=== PATIENT | female | born 1980 | race Caucasian/White ===

== ENCOUNTER → 2017-03-26 | Outpatient (CLI) | payer OTHER ==
[~2017-03-26] MED LIST: ACET-1256 PO; CLR10 PO; DOXY50CA PO; IBUP-103 PO; METF500T PO; MULT1CHW4 PO; SPIR50TA3 PO
[2017-03-26 09:58] LABS: CHOLESTEROL/HDL RATIO 2.5
== END | disposition home or self-care (01) ==
LOC: C.LAB1850 08:20
PROVIDERS: ATTEND Internal Medicine Endocrinology, Diabetes & Metabolism
DX: E55.9 Vitamin D deficiency, unspecified (principal); E28.2 Polycystic ovarian syndrome

== ENCOUNTER 2017-07-18 04:33 | Emergency (ER) | payer OTHER ==
[~2017-07-18] VITALS: Ht 162.6 cm; Wt 95.1 kg
[2017-07-18 04:38] VITALS: TEMP 36.9; Ht 162.6 cm; Wt 95.1 kg
[2017-07-18] MEDS ORDERED: SODIUM CHLORIDE 0.9% 1000ML 1,000 ML IV STA (04:57)
[2017-07-18] MEDS ORDERED: DICYCLOMINE HCL 10 MG/ML 2 ML AMP IM ONE (05:00)
[2017-07-18] MEDS ORDERED: OPTIRAY 320 IV PRN (05:15)
[2017-07-18 05:32] LABS: BASO % 0.2 %; BASO ABS # 0.02 K/uL (0-0.2); EOS % 0.2 %; EOS ABS # 0.03 K/uL (0-0.5); HEMATOCRIT 42.1 % (37-47); HEMOGLOBIN 14.2 g/dL (12.0-16.0); IG# 0.03 K/uL (0.00-0.02); LYMPH % 12.2 %; LYMPH ABS # 1.51 K/uL (1.2-3.4); MEAN CORPUSCULAR HEMOGLOBIN 29.3 pg (25-34); MEAN CORPUSCULAR HGB CONC 33.7 g/dl (32-36); MEAN PLATELET VOLUME 9.9 fL (7.4-10.4); MONO % 4.6 %; MONO ABS # 0.57 K/uL (0.11-0.59); NEUT % 82.6 %; NEUT ABS # 10.21 K/uL (1.4-6.5); PLATELET COUNT 312 K/uL (130-400); RED CELL DISTRIBUTION WIDTH CV 13.7 % (11.5-14.5); RED CELL DISTRIBUTION WIDTH SD 43.2 fL (36.4-46.3); WHITE BLOOD COUNT 12.37 K/uL (4.8-10.8)
[2017-07-18 05:35] VITALS: O2SAT 99
[2017-07-18 05:49] LABS: ALBUMIN 3.8 gm/dl (3.4-5.0); CALCIUM 8.9 mg/dl (8.5-10.1); CREATININE 0.86 mg/dl (0.60-1.20); POTASSIUM 3.8 mmol/L (3.5-5.1)
[2017-07-18] MEDS ORDERED: BUPR75TA8 PO (06:05)
[2017-07-18] MEDS ORDERED: PHEN37.585 PO (06:05)
[2017-07-18] MEDS ORDERED: BCPILLS PO (06:05)
--- NOTE | 2017-07-18 06:31 | DIAGNOSTIC IMAGING REPORT ---
ABD/PELVIS IV CONTRAST ONLY CLINICAL HISTORY: 37 years-old Female presenting with lower abd pain, bloody D. TECHNIQUE: Multidetector CT of the abdomen and pelvis was performed after the administration of intravenous contrast. IV contrast: 94 mL of Optiray 320. A dose lowering technique was used consistent with the principles of ALARA (as low as reasonably achievable). COMPARISON: None. CT DOSE (mGy.cm): The estimated cumulative dose is 729.69 mGy.cm. FINDINGS: Hand Tool Filer topogram: Unremarkable. Lung bases: Minimal basilar opacities, likely atelectasis. Normal heart size. No pericardial or pleural effusion. Liver: Normal morphology. No liver lesion. Patent hepatic vasculature. Biliary: No intrahepatic or extrahepatic biliary ductal dilatation. Normal gallbladder. Pancreas: Normal. Spleen: Normal. Adrenal glands: Normal. Kidneys and ureters: Normal. No hydronephrosis. Bladder: Normal. Pelvic organs: Uterus and ovaries normal. Bowel: Wall thickening with some mucosal edema and mild pericolonic inflammatory change along the descending colon. No adjacent fluid collection or evidence of perforation. The appendix is normal. No bowel obstruction. Peritoneal cavity: No free fluid or intraperitoneal gas. Lymph nodes: No enlarged lymph nodes in the abdomen or pelvis. Vasculature: Aorta and IVC patent and normal in caliber. Abdominal wall: Small fat-containing umbilical hernia. Musculoskeletal: Normal. Bone island noted in the L3 vertebral body. IMPRESSION: 1. Findings consistent with colitis of the descending colon, most likely infectious. No associated abscess or perforation. Electronically signed by: Iker Trevizo M.D. 07/18/2017 6:30 AM Dictated Date/Time: 07/18/2017 6:13 AM
--- NOTE | 2017-07-18 06:38 | EMERGENCY ROOM VISIT NOTE ---
History First contact with patient: 04:45 Chief Complaint: ABDOMINAL PAIN Stated Complaint: STOMACH CRAMPING W/WATERY BLOODY DIARRHEA History of Present Illness The patient is a 37 year old female who presents to the Emergency Room with complaints of lower abdominal cramping with diarrhea and a little bit of blood in it for the past day. Patient had a colonoscopy a year and a half ago that showed benign polyps per patient. She describes the pain as cramping, ranging in severity comes and goes currently 3 out of 10. To the left lower quadrant. It does not radiate. Nothing makes it better or worse. Patient states she started off with abdominal cramping and then had a bowel movement and then had a few episodes of diarrhea and since then she has had 3 more episodes with a little bit of blood that comes out. No clots or toilet bowl full of blood. No black stool. No history of GI bleeding in the past. Patient has been taking a diet suppressant tablet. Patient denies chest pain, dyspnea, fever, chills, nausea, vomiting, back pain, urinary symptoms. Patient brought in pictures to show me. I did review this. There is minimal amount of blood in the toilet. No recent antibiotics. Patient is on well water. Review of Systems An 10 system review of systems was completed with positives and pertinent negatives listed in the HPI. Past Medical/Surgical History Medical Problems: (1) ABNORMAL GLANDULAR PAPANICOLAOU SMEAR OF CERVIX (2) ESOPHAGEAL REFLUX (3) FAM HX-DIABETES MELLITUS Social History Smoking Status: Never Smoker Alcohol Use: none Marital Status: Housing Status: lives with family Occupation Status: employed Current/Historical Medications Scheduled Control Pills ( Control Pills), 1 TAB PO DAILY Bupropion Hcl (Wellbutrin), 150 MG PO BID Loratadine (Claritin), 10 MG PO DAILY Multiple Vitamins W/ Minerals (Adult Gummy), 1 TAB PO DAILY Phentermine Hcl (Adipex P), 37.5 MG PO DAILY Spironolactone (Aldactone), 50 MG PO BID Physical Exam Vital Signs Date Time Temp Pulse Resp B/P (MAP) Pulse Ox O2 Delivery O2 Flow Rate FiO2 07/18/17 06:14 136/99 07/18/17 05:39 78 20 98 07/18/17 05:38 80 07/18/17 05:35 99 Room Air 07/18/17 05:34 144/95 2/10/18 04:38 36.9 114 24 165/104 99 Room Air Physical Exam VITALS: Vitals are noted on the nurse's note and reviewed by myself. Vital signs hypertensive GENERAL: Pleasant female anxious appearing, in no acute distress, nondiaphoretic , well-developed well-nourished. SKIN: The skin was without rashes, erythema, edema, or bruising. There is no tenting of the skin. Capillary reflex less than 2 seconds. HEAD: Normocephalic atraumatic. EARS: External auditory canals clear, tympanic membranes pearly weinberg without erythema or effusion bilaterally. EYES: Pupils equal round and reactive to light and accommodation. Conjunctivae without injection, sclerae without icterus. Extraocular movements intact. NOSE: Patent, turbinates without inflammation or discharge. MOUTH: Mucous membranes moist. Pharynx without erythema or exudate. Uvula midline. Airway patent. Tongue does not deviate. NECK: Supple without nuchal rigidity. No lymphadenopathy. No thyromegaly. Cervical spine is nontender. No JVD. HEART: Regular rate and rhythm LUNGS: Clear to auscultation bilaterally without wheezes, rales or rhonchi. No dullness to percussion. No retractions or accessory muscle use. ABDOMEN: Positive bowel sounds x 4. Normal tympanic percussion. Soft, tender to palpation left lower quadrant, no CVA tenderness, without masses or organomegaly. Caruso sign negative. No guarding or rebound tenderness. Rectal exam: No fissures or tears. Rn Primary Care present MUSCULOSKELETAL: No muscle atrophy, erythema, or edema noted. NEURO: Patient was alert and oriented to person place and time. Normal sensation to light and sharp touch. No focal neurological deficits. Medical Decision & Procedures Laboratory Results 07/18/17 05:10 Red Blood Count 4.84, Mean Corpuscular Volume 87.0, Mean Corpuscular Hemoglobin 29.3, Mean Corpuscular Hemoglobin Concent 33.7, Mean Platelet Volume 9.9, Neutrophils (%) (Auto) 82.6, Lymphocytes (%) (Auto) 12.2, Monocytes (%) (Auto) 4.6, Eosinophils (%) (Auto) 0.2, Basophils (%) (Auto) 0.2, Neutrophils # (Auto) 10.21, Lymphocytes # (Auto) 1.51, Monocytes # (Auto) 0.57, Eosinophils # (Auto) 0.03, Basophils # (Auto) 0.02 07/18/17 05:10 Test 07/18/17 05:10 07/18/17 06:06 White Blood Count 12.37 K/uL (4.8-10.8) Red Blood Count 4.84 M/uL (4.2-5.4) Hemoglobin 14.2 g/dL (12.0-16.0) Hematocrit 42.1 % (37-47) Mean Corpuscular Volume 87.0 fL (80-100) Mean Corpuscular Hemoglobin 29.3 pg (25-34) Mean Corpuscular Hemoglobin Concent 33.7 g/dl (32-36) Platelet Count 312 K/uL (130-400) Mean Platelet Volume 9.9 fL (7.4-10.4) Neutrophils (%) (Auto) 82.6 % Lymphocytes (%) (Auto) 12.2 % Monocytes (%) (Auto) 4.6 % Eosinophils (%) (Auto) 0.2 % Basophils (%) (Auto) 0.2 % Neutrophils # (Auto) 10.21 K/uL (1.4-6.5) Lymphocytes # (Auto) 1.51 K/uL (1.2-3.4) Monocytes # (Auto) 0.57 K/uL (0.11-0.59) Eosinophils # (Auto) 0.03 K/uL (0-0.5) Basophils # (Auto) 0.02 K/uL (0-0.2) RDW Standard Deviation 43.2 fL (36.4-46.3) RDW Coefficient of Variation 13.7 % (11.5-14.5) Immature Granulocyte % (Auto) 0.2 % Immature Granulocyte # (Auto) 0.03 K/uL (0.00-0.02) Anion Gap 6.0 mmol/L (3-11) Est Creatinine Clear Calc Drug Dose 99.2 ml/min Estimated GFR () 99.3 Estimated GFR (Non- 85.7 BUN/Creatinine Ratio 12.7 (10-20) Calcium Level 8.9 mg/dl (8.5-10.1) Total Bilirubin 0.6 mg/dl (0.2-1) Direct Bilirubin 0.2 mg/dl (0-0.2) Aspartate Amino Transf (AST/SGOT) 19 U/L (15-37) Alanine Aminotransferase (ALT/SGPT) 21 U/L (12-78) Alkaline Phosphatase 65 U/L (45-117) Total Protein 8.0 gm/dl (6.4-8.2) Albumin 3.8 gm/dl (3.4-5.0) Lipase 82 U/L (73-393) Human Chorionic Gonadotropin, Qual NEG (NEG) Medications Administered Medications (Trade) Dose Ordered Sig/Mario Route Start Time Stop Time Status Last Admin Dose Admin Sodium Chloride 1,000 ml @ 999 mls/hr Q1H1M STAT IV 07/18/17 04:57 07/18/17 05:57 DC 07/18/17 05:29 999 MLS/HR Dicyclomine HCl (Bentyl Inj) 20 mg NOW ONCE IM 07/18/17 05:00 07/18/17 05:01 DC 07/18/17 05:29 20 MG ED Course Prior records/ancillary studies reviewed. Triage Nursing notes reviewed. The patient's history was concerning for possible gastrointestinal bleeding. Differential diagnosis: Etiologies such as diverticulosis, AVM, coagulopathy, colitis, inflammatory bowel disease, malignancy, fissure, hemorrhoids, as well as others were entertained. Physical exam: As above. The patients vital signs were stable. ER treatment provided: IV fluids, Bentyl On reassessment the patient felt better. Diagnostics interpreted by me: The labs revealed mild leukocytosis. Negative hCG Imaging studies: FINDINGS: Irish Moss Bleacher topogram: Unremarkable. Lung bases: Minimal basilar opacities, likely atelectasis. Normal heart size. No pericardial or pleural effusion. Liver: Normal morphology. No liver lesion. Patent hepatic vasculature. Biliary: No intrahepatic or extrahepatic biliary ductal dilatation. Normal gallbladder. Pancreas: Normal. Spleen: Normal. Adrenal glands: Normal. Kidneys and ureters: Normal. No hydronephrosis. Bladder: Normal. Pelvic organs: Uterus and ovaries normal. Bowel: Wall thickening with some mucosal edema and mild pericolonic inflammatory change along the descending colon. No adjacent fluid collection or evidence of perforation. The appendix is normal. No bowel obstruction. Peritoneal cavity: No free fluid or intraperitoneal gas. Lymph nodes: No enlarged lymph nodes in the abdomen or pelvis. Vasculature: Aorta and IVC patent and normal in caliber. Abdominal wall: Small fat-containing umbilical hernia. Musculoskeletal: Normal. Bone island noted in the L3 vertebral body. IMPRESSION: 1. Findings consistent with colitis of the descending colon, most likely infectious. No associated abscess or perforation. Electronically signed by: Iker Trevizo M.D. 07/18/2017 6:30 AM This appears to be consistent with colitis most likely viral in etiology. Patient felt much better after being medicated as above. Her symptoms are resolved. She is advised to do a clear liquid diet today and progressive bland diet for the next few days and take medications as directed. Patient was neurovascularly and neurologically intact. She does not have acute abdomen exam. She is well-appearing. She is tolerating fluids. She was advised to follow-up with her GI doctor in a few days here in the ER sooner for heavy bleeding, pain, fevers, worsening signs or symptoms or as needed. By the evaluation outlined above emergent etiologies such as esophageal perforation, peptic ulcer disease, variceal bleed, coagulopathy, gastritis, epistaxis, malignancy, as well as others were deemed relatively unlikely. The pt informed about the findings as listed above. All questions were answered and pleased with the treatment. Return instructions were outlined and the patient was discharged in stable condition. Outpatient prescription management: Bentyl, Zofran Referral: The patient was referred back to their primary care physician and/or GI for follow-up in 2 to 3 days for a recheck of the current condition Case reviewed with my attending Medical Decision As above Medication Reconcilliation Current Medication List: was personally reviewed by me Blood Pressure Screening Patient's blood pressure: Elevated blood pressure Blood pressure disposition: Referred to PCP Impression Primary Impression: Colitis Departure Information Dispostion Home / Self-Care Condition GOOD Referrals Bindu Dutta D.O. (PCP) Patient Instructions My [facility] Additional Instructions Bentyl 10 m tablet every 6 hours as needed for abdominal cramping. Zofran 4mg: Take one every six hours as needed for nausea. Avoid alcohol, operating machinery or dangerous equipment, working on ladders or roofs, DRIVING , or situations where being under the influence may be dangerous. Rest and drink plenty of fluids as tolerated. Slow sips of water or sports drinks are recommended instead of large amounts all at once. Continue current medications. Once your stomach is settled start with a clear liquid diet (jello, soup broth, etc.) and then advance as tolerated. You should avoid full, heavy meals for about 24 hrs from the time your symptoms resolved. Return to the ER immediately for worsening or persistent abdominal pain, heavy rectal bleeding, vomiting, fevers, chest pains, difficulty breathing, black or bloody stools, worsening of your condition, or as needed. Follow up with your primary physician and/or GI doctor within the next 2-3 days rs for a recheck of your current condition.
[2017-07-18] MEDS ORDERED: DICY10CA55 PO (06:41)
[2017-07-18] MEDS ORDERED: ONDANSETRON HOME PACK 4MG OD TAB PO ONE (06:45)
[2017-07-18] MEDS ORDERED: BENTYL HOME PACK 10 MG VIAL PO ONE (06:45)
[2017-07-18 06:50] VITALS: BP 126/76; PULSE 84; O2SAT 98
== END 2017-07-18 06:50 | disposition home or self-care (01) ==
LOC: C.EDB 04:34
DX: K52.89 Other specified noninfective gastroenteritis and colitis (principal); R10.9 Unspecified abdominal pain

== ENCOUNTER → 2017-08-05 | Outpatient (CLI) | payer OTHER ==
[~2017-08-05] MED LIST changes: -ACET-1256 PO; +BCPILLS PO; +BUPR75TA8 PO; -DOXY50CA PO; -IBUP-103 PO; -METF500T PO; +PHEN37.585 PO
== END | disposition home or self-care (01) ==
LOC: C.PAPS 11:43
PROVIDERS: ATTEND Obstetrics & Gynecology
DX: Z12.4 Encounter for screening for malignant neoplasm of cervix (principal); Z30.40 Encounter for surveillance of contraceptives, unspecified